=== PATIENT | female | born 1950 | race Caucasian/White ===

== ENCOUNTER 2018-07-08 15:40 | Emergency (ER) | payer MEDICARE ==
[2018-07-08 16:01] VITALS: BP 129/79
--- NOTE | 2018-07-08 16:05 | UC ---
Ear Complaint HPI - History of Current Complaint Chief Complaint: UCEar Stated Complaint: EARS PLUGGED Time Seen by Provider: 07/08/18 16:05 Pain Intensity: 6 - Allergies/Home Medications Allergies/Adverse Reactions: Allergies Allergy/AdvReac Type Severity Reaction Status Date / Time Penicillins Allergy Severe Anaphylatic Verified 07/08/18 16:01 Shock amoxicillin Allergy Anaphylatic Verified 07/08/18 16:01 Shock Home Medications: Home Medications Melatonin/Herbal No.233 [Midnite Chewable Tablet] 1 each PO DAILY WITH MEAL 11/13 [History Confirmed 07/08/18] PMH/Surg Hx/FS Hx/Imm Hx - Surgical History Surgical History: None Surgery Procedure, Year, and Place: denies - Social History Alcohol Use: Occasionally Substance Use Type: None Smoking Status (MU): Never Smoked Tobacco Physical Exam Vital Signs: Initial Vital Signs Temp 99.2 F 07/08/18 15:57 Pulse 91 07/08/18 15:57 Resp 18 07/08/18 15:57 BP 129/79 07/08/18 15:57 Pulse Ox 100 07/08/18 15:57 Discharge - Discharge Plan Referrals: Nguyen Morton MD [Primary Care Provider] -
--- NOTE | 2018-09-05 12:01 | UC ---
Ear Complaint HPI - HPI Summary HPI Summary: one week has had clogged ears, slightly painful /pressure - History of Current Complaint Chief Complaint: UCEar Stated Complaint: EARS PLUGGED Time Seen by Provider: 07/08/18 16:05 Hx Obtained From: Patient ?: No Onset/Duration: Gradual Onset, Lasting Weeks Severity Initially: Mild Severity Currently: Mild Pain Intensity: 0 Pain Scale Used: 0-10 Numeric Associated Signs/Symptoms: Positive: Hearing Loss - Allergies/Home Medications Allergies/Adverse Reactions: Allergies Allergy/AdvReac Type Severity Reaction Status Date / Time Penicillins Allergy Severe Anaphylatic Verified 07/21/18 14:46 Shock amoxicillin Allergy Anaphylatic Verified 07/21/18 14:46 Shock Home Medications: Home Medications Melatonin/Herbal No.233 [Midnite Chewable Tablet] 1 each PO DAILY WITH MEAL 11/13 [History Confirmed 07/08/18] PMH/Surg Hx/FS Hx/Imm Hx Previously Healthy: Yes - Surgical History Surgical History: None Surgery Procedure, Year, and Place: denies - Family History Known Family History: Positive: Hypertension - Social History Alcohol Use: Occasionally Substance Use Type: None Smoking Status (MU): Never Smoked Tobacco Review of Systems Constitutional: Negative Skin: Negative Eyes: Negative ENT: Ear Ache Respiratory: Negative Cardiovascular: Negative Gastrointestinal: Negative Genitourinary: Negative Motor: Negative Neurovascular: Negative Musculoskeletal: Negative Neurological: Negative Psychological: Negative Is Patient Immunocompromised?: No All Other Systems Reviewed And Are Negative: Yes Physical Exam Triage Information Reviewed: Yes Appearance: Well-Appearing, Well-Nourished, Pain Distress Vital Signs: Initial Vital Signs Temp 99.2 F 07/08/18 15:57 Pulse 91 07/08/18 15:57 Resp 18 07/08/18 15:57 BP 129/79 07/08/18 15:57 Pulse Ox 100 07/08/18 15:57 Vital Signs Reviewed: Yes Eye Exam: Normal ENT Exam: Other - cerumen impaction ENT: Positive: Pharyngeal erythema, TM bulging Neck exam: Normal Respiratory Exam: Normal Cardiovascular Exam: Normal Abdominal Exam: Normal Musculoskeletal Exam: Normal Neurological Exam: Normal Psychological Exam: Normal Skin Exam: Normal Ear Complaint Course/Dx - Course Course Of Treatment: hx obtained, exam performed, meds reviewed, - Differential Dx/Diagnosis Differential Diagnosis/HQI/PQRI: Cerumen Impaction, Otitis Externa, Otitis Media Provider Diagnoses: serous otitis Discharge - Sign-Out/Discharge Documenting (check all that apply): Patient Departure All imaging exams completed and their final reports reviewed: No Studies - Discharge Plan Condition: Stable Disposition: HOME Patient Education Materials: Serous Otitis Media (ED) Referrals: Nguyen Morton MD [Primary Care Provider] - Additional Instructions: 1. warm compresses to neck and ears 2. daily zyrtec or drug store equivalent daily 3. Flonase, 2 puffs in both nares daily for 3-4 weeks. 4. Follow up if not improving - Billing Disposition and Condition Condition: STABLE Disposition: Home
== END 2018-07-08 16:20 | disposition home or self-care (01) ==
LOC: UCEAST 15:40
DX: H65.93 Unspecified nonsuppurative otitis media, bilateral (principal); H61.23 Impacted cerumen, bilateral; Z88.0 Allergy status to penicillin
CPT/HCPCS: 99212; G0463

== ENCOUNTER 2018-07-21 14:29 | Emergency (ER) | payer MEDICARE ==
--- OUTSIDE RECORDS SUMMARY | 2018-07-21 14:42 | XMS REPORT ---
:1950 External Reference #:[id number] Author Organization [employer] Address [address] [place] [address] Phone [phone] Care Team Providers Name Role Phone Nguyen Morton MD Primary Care Physician Unavailable Payers Type Date Identification Numbers Payment Provider Subscriber Commercial Effective: Policy Number: [id number] [employer] Emilie White 2017 PayID: [id number] [address] [place] [address] Problems Date Description Provider Status Onset: 01/03/2012 Hyperlipidemia Imani Neves, N.P. Active Onset: 01/03/2012 Goiter Imani Neves, N.P. Active Family History Date Family Member(s) Problem(s) Comments : (age 61 Father due to [place] Years) Onset: (03/18/2014) Mother Depression age 93 Siblings 3 1 Brother - ? Lung Cancer - age 63 1 Brother - DM age 67 1 Brother - Sinus Trouble age 54 Social History Type Date Description Comments Marital Status Occupation Homemaker Occupation Retired ETOH Use Currently consumes alcohol 0 - 1 per week Smoking Patient has never smoked Exercise Type/Frequency Exercises regularly Walks daily, Goes to the gym regularly to do weights and cardio Allergies, Adverse Reactions, Alerts Date Description Reaction Status Severity Comments 01/03/2012 Amoxicillin Anaphylaxis, swelling active Moderate to Severe Medications Medication Date Status Form Strength Qnty SIG Indications Ordering Provider Zyrtec Allergy 07/12/ Active Capsules 10mg 30caps take one Imani 2018 tablet by Pura, N.P. mouth in the evening Fluticasone 07/12/ Active Suspension 50mcg/Act 1units 2 sprays Imani Propionate 2017 per Varn, N.P. Nasal [place] nostril 24- Hour daily Afrin 12 Hour 07/12/ Active Solution 0.05% 60ml 2 squirts 2017 to each Varn, N.P. nostril twice a day for no more than 5 days Escitalopram 07/12/ Active Tablets 10mg 30tabs 1 by F41.1 Imani Oxalate 2017 mouth Varn, N.P. every day Xanax 04/27/ Active Tablets 0.25mg 30tabs one by Imani 2017 mouth up Varn, N.P. to three times daily as needed for anxiety Ibuprofen / Active Capsules 200mg prn Unknown 0000 Calcium + D / Active Tablets 600-200mg- 30tabs 1 po bid Unknown 0000 Unit Multi-Vitamin / Active Tablets 1 po qd Unknown 0000 Lycopene / Active Capsules Unknown 0000 Doxycycline 06/01/ Hx Tablets 100mg 2tabs take 2 Nguyen Hyclate 2010 - tablets Cotton, 06/02/ by mouth M.D. 2010 Cetirizine HCL / Hx Tablets 10mg 1 by Unknown 0000 - mouth 03/14/ every day 2017 Garlic / Hx Capsules 450mg 1 by Unknown 0000 - mouth 03/14/ every day 2017 Immunizations CPT Code Status Date Vaccine Reaction Lot # [id number] Given 03/14/2018 Pneumococcal Conjugate No immediate [id number] Vaccine 13 Valent For reaction.. Intramuscular Use 50155 Given 09/07/2017 Influenza Virus Vaccine, No immediate [id number] Quadrivalent, Split, reaction... Preservative Free 84141 Given 09/16/2016 Influenza Virus Vaccine, no reaction noted .. [id number] Quadrivalent, Split Virus, [place] Use 82228 Given 09/04/2015 Influenza Virus Vaccine, [id number] Quadrivalent, Split, Preservative Free 38477 Given 09/30/2014 Flu Vaccine Split Virus Preservative Free For Indiv 3Yr Older 14334 Given 09/30/2014 Flu Vaccine Split Virus [id number] Preservative Free For Indiv 3Yr Older 88489 Given 04/28/2014 Zoster (Zostavax) 08011 Given 04/28/2014 Zoster (Zostavax) [id number] 09506 Given 09/30/2013 Flu Vaccine Split Virus [id number] Preservative Free For Indiv 3Yr Older [id number] Given 09/18/2012 Fluvirin Im 3Yrs And Older [id number] 76281 Given 09/23/2011 Influenza Virus 3Yrs & Over [id number] 30195 Given 06/24/2010 Tdap - Tetanus/Diptheria/Acellular Pertussis Vital Signs Date Vital Result Comment 07/12/2018 Height 67 inches 5'7" Weight 164.50 lb Heart Rate 90 /min BP Systolic 130 mmHg BP Diastolic 68 mmHg Body Temperature 98.5 F O2 % BldC Oximetry 97 % BMI (Body Mass Index) 25.8 kg/m2 03/14/2018 Height 67 inches 5'7" Weight 181.50 lb Heart Rate 72 /min BP Systolic 128 mmHg BP Diastolic 82 mmHg Body Temperature 98.8 F O2 % BldC Oximetry 97 % BMI (Body Mass Index) 28.4 kg/m2 03/18/2014 Height 67 inches 5'7" Weight 180.00 lb Heart Rate 80 /min BP Systolic Sitting 130 mmHg BP Diastolic Sitting 70 mmHg BMI (Body Mass Index) 28.2 kg/m2 09/18/2012 Height 67 inches 5'7" Weight 169.00 lb Heart Rate 72 /min BP Systolic Sitting 130 mmHg BP Diastolic Sitting 80 mmHg BMI (Body Mass Index) 26.5 kg/m2 01/03/2012 Height 67 inches 5'7" Weight 177.00 lb Heart Rate 84 /min BP Systolic Sitting 142 mmHg BP Diastolic Sitting 76 mmHg BMI (Body Mass Index) 27.7 kg/m2 Results Test Date Test Result H/L Range Note Laboratory test finding 03/14/2018 Cytology SEE RESULT BELOW 1, 2 Lipid Profile 03/08/2018 Triglycerides 261 mg/dL 3 (Trig/Chol/HDL) Cholesterol 241 mg/dL 4 HDL Cholesterol 50.0 mg/dL 5 LDL Cholesterol 139 mg/dL 6 Comp Metabolic Panel 03/08/2018 Sodium 140 mmol/L 139-145 Potassium 4.1 mmol/L 3.5-5.0 Chloride 105 mmol/L 101-111 Co2 Carbon Dioxide 28 mmol/L 22-32 Anion Gap 7 mmol/L 2-11 Glucose 99 mg/dL 70-100 Blood Urea Nitrogen 15 mg/dL 6-24 Creatinine 0.78 mg/dL 0.51-0.95 BUN/Creatinine Ratio 19.2 8-20 Calcium 9.2 mg/dL 8.6-10.3 Total Protein 6.7 g/dL 6.4-8.9 Albumin 4.2 g/dL 3.2-5.2 Globulin 2.5 g/dL 2-4 Albumin/Globulin Ratio 1.7 1-3 Total Bilirubin 0.50 mg/dL 0.2-1.0 Alkaline Phosphatase 65 U/L 34-104 Alt 10 U/L 7-52 Ast 13 U/L 13-39 Egfr Non- 74.1 >60 Egfr 95.3 >60 7 Laboratory test finding 03/18/2014 Cytology RUN DATE: <SEE NOTE> HPV High Risk 03/18/2014 Human Papillomavirus See Comment 9 Source HPV High Risk Type 16, PCR Negative Negative HPV High Risk Type 18, PCR Negative Negative HPV Other Risk types Negative Negative 10 Lipid Profile (Trig/Chol/HDL) 03/07/2014 Triglycerides 128 mg/dL 11, 12 Cholesterol 254 mg/dL 11, 13 HDL Cholesterol 55.2 mg/dL 11, 14 LDL Cholesterol 173 mg/dL 11, 15 Laboratory test finding 03/07/2014 Glucose 97 mg/dL 70-100 11, 16 TSH (Thyroid Stimulating Horm) 1.02 IU/mL 0.34-5.60 11, 17 Laboratory test finding 01/03/2012 Cytology <SEE NOTE> 18 1 [id number] 2 SEE RESULT BELOW Name: EMILIE WHITE : [address]: Imani Neves FORM PRESSER Acct: [id number] Unit: [id number] AGE: 67 Location: [facility] Re03/14/18 SEX: F Status: REG REF SPEC: [id number] FRANK: 03/14/181555 [facility] DR: Imani Neves FORM PRESSER REQ: [id number] RECD: 03/14/18 STATUS: SOUT _ ORDERED: TP IMAGE ANAL, HPV/Thin Prep, HPV 16/18 GENE COMMENTS: [id number] Negative for Intraepithelial lesion or Malignancy A. Ectocervical/Endocervical Specimen Adequacy: Satisfactory of evaluation Transformation zone component cannot be definitely identified due to presence of atrophy or other hormonal changes Patient Information: HPV: High risk HPV RNA testing regardless of pap results. HPV 16/18 Genotype Reflex Actual Specimen Date: 03/14/18 LMP If Unknown: age 50 +/- Spec Date if unknown: 214 ?: N Post Menopausal?: Y Hysterectomy?: N Previous Abnormal Pap Smears?:N Date Time Test Result Flag (u) Normal Range 03/14/18 1600 @ HPV RNA RFLX GE Negative Negative @ @ The high-risk HPV types detected by the assay include: 16, @ 18, 31, 33, 35, 39, 45, 51, 52, 56, 58, 59, 66, and 68. Signed (signature on file) FER Mora(ASCP) 03/15 1419 This Pap test was evaluated with the assistance of the [employer] Test Imaging System. Due to cytologic findings at the supervisor felling bucking microscope, comprehensive manual rescreening by a [employer] may be required. The Pap Smear is a screening test designed to aid in the detection of premalignant and malignant conditions of the uterine cervix. It is not a diagnostic procedure and should not be used as the sole means of detecting cervical cancer. Both false- positive and false- negative reports do occur. Depending on your risk status, a Pap smear should be obtained and evaluated every 1-3 years. END OF REPORT DEPARTMENT OF PATHOLOGY, [address] [place] [address] Gary Dan M.D. Director [facility] # [id number] 3 Desirable: <150 Borderline High: 150-199 High: 200-499 Very High: >500 4 Desirable: <200 Borderline High: 200-239 High: >239 5 Low: <40 Desirable: 40-60 High: >60 6 Desirable: <100 Near Optimal: 100-129 Borderline High: 130-159 High: 160-189 Very High: >189 7 Because ethnic data is not always readily available, this report includes an eGFR for both -Americans and non- Americans. The National Kidney Disease Education Program (NKDEP) does not endorse the use of the MDRD equation for patients that are not between the ages of 18 and 70, are , have extremes of body size, muscle mass, or nutritional status, or are non- or non-. According to the National Kidney Foundation, irrespective of diagnosis, the stage of the disease is based on the level of kidney function: Stage Description GFR(mL/min/1.73 m(2)) 1 Kidney damage with normal or decreased GFR 90 2 Kidney damage with mild decrease in GFR 60-89 3 Moderate decrease in GFR 30-59 4 Severe decrease in GFR 15-29 5 Kidney failure <15 (or dialysis) 8 RUN DATE: 03/19/14 [facility] LAB LIVE PAGE 1 RUN TIME: [address] [place] [address] Specimen Inquiry Name: EMILIE WHITE : [address]: Imani Neves NP Acct: [id number] Unit: [id number] AGE: 63 Location: [facility] Re03/18/14 SEX: F Status: REG REF SPEC: [id number] FRANK: 03/18/14-9587 [facility] DR: Imani Neves NP REQ: [id number] RECD: 03/18/14767 STATUS: SOUT _ ORDERED: IMAGE ANALYSIS, HPV/Thin Prep FINAL DIAGNOSIS Negative for Intraepithelial lesion or Malignancy COMMENTS: Specimen sent to [facility] in [place], [place] on 03/19/14 by [id number] at 1033. Results will be reported separately. A. Ectocervical/Endocervical Specimen Adequacy: Satisfactory of evaluation Transformation zone component cannot be definitely identified due to presence of atrophy or other hormonal changes Patient Information: HPV: High risk HPV DNA testing regardless of pap results. Actual Specimen Date: 03/18/14 LMP If Unknown: 50's Cautery: N ?: N Post Menopausal?: Y Hysterectomy?: N Previous Abnormal Pap Smears?:N Signed (signature on file) Gloria Issa CT (ASCP) 03/19/14 1138 This Pap test was evaluated with the assistance of the [employer] Test Imaging System. Due to cytologic findings at the supervisor felling bucking microscope, comprehensive manual rescreening by a [employer] may be required. The Pap Smear is a screening test designed to aid in the detection of premalignant and malignant conditions of the uterine cervix. It is not a diagnostic procedure and should not be used as the sole means of detecting cervical cancer. Both false- positive and false- negative reports do occur. Depending on your risk status, a Pap smear shoudl be obtained and evaluated every 1-3 years. END OF REPORT * ML=Testing performed at Main Lab DEPARTMENT OF PATHOLOGY, [address] [place] [address] Gary Dan M.D. Director [facility] Permit #[id number] 9 RESULT: Ectocervical/Endocervical 10 The following Other High Risk HPV types were not detected: 31, 33, 35, 39, 45, 51, 52, 56, 58, 59, 66, and 68 Test Performed by: [address] [address] Pilot Safety Inspector: Himanshu Maldonado III, M.D. 11 PT IS FASTING 12 Desirable <150 Borderline high 150-199 High 200-499 Very High >500 13 Desirable <200 Borderline high 200-239 High >239 14 Low <40 Desirable: 40-60 High: >60 15 Desirable <100 Near Optimal 100-129 Borderline high 130-159 High 160-189 Very High >189 16 PT IS FASTING 17 PT IS FASTING 18 ---- RUN DATE: 01/04/12 [facility] NMI LIVE PAGE 1 RUN TIME: 1551 Specimen Inquiry RUN USER: INTERFACE -- Name: ENAJUDITHEMILIE D Status: REG REF Re01/03/12 Age/Sex: 61/F Unit#: [id number] Location: [facility] : [birth year] -- Specimen: [id number] SOUT Spec Date: 01/03/[address]: Imani SELBYP Spec Type: CYTOLOGY Received: 01/04/12-1113 Copies to: SOURCE ECTOCERVICAL/ENDOCERVICAL Thin Prep with Reflex HPV Test PATIENT INFORMATION ACTUAL COLLECTION DATE: 01/03/12 POST MENOPAUSAL? Yes PREVIOUS ABNORMAL PAP SMEARS No PATIENT HISTORY: Last menstrual period at age 53 ADEQUACY OF SPECIMEN Satisfactory for evaluation * Transformation zone component cannot be definitely identified due to prese nce * of atrophy or other hormonal changes. * DIAGNOSIS NEGATIVE FOR INTRAEPITHELIAL LESION OR MALIGNANCY * This Pap test was evaluated with the assistance of the [employer] DIG[employer]EP[employer] Pap Test Imaging System. The Pap Smear is a screening test designed to aid in the detection of premalign ant and malignant conditions of the uterine cervix. It is not a diagnostic procedure a nd should not be used as the sole means of detecting cervical cancer. Both false- positiv e and false-negative reports do occur. Depending on your risk status, a Pap smear mily uld be obtained and evaluated every one to three years. Initial evaluation performed by Mar LIM([facility]) 01/04/12 Final Interpretation electronically signed by: Mar LIM([facility]) 01/04/12 1550 -- -- DEPARTMENT OF PATHOLOGY, [address] [place] [address] [facility] Permit #[id number] Gary Dan M.D. Director Donald Cole M.D. Occupational Work Experience Teacher Dir renetta -- Procedures Date CPT Code Description Status Comment 04/03/2018 Bone Mineral Density Test Completed 04/03/2018 Mammogram Completed 03/14/2018 97582 EKG Tracing & Interpretation Completed 10/18/2017 Diabetic Retinal Eye Exam Completed Document: 10/18/17 - Consult Ophthalmology/[place] 05/02/2014 Mammogram Completed 01/03/2012 01933 EKG Tracing & Interpretation Completed 06/29/2011 Mammogram Completed 07/29/2010 Colonoscopy Completed 06/07/2010 Mammogram Completed Encounters Type Date Location Provider CPT E/M Dx Office Visit 03/18/2014 1:40p [facility] Imani Neves N.P. [address] V70.0 - [place] V72.31 V76.10 272.4 240.9 Office Visit 09/18/2012 2:20p [facility] Imani Neves, N.P. [address] 916.4 - [place] V04.81 709.9 Office Visit 01/03/2012 9:20a [facility] Imani Neves N.P. 22018 V70.0 - [place] 272.4 477.9 Office Visit 06/02/2010 9:00a DO Not Use Imani Neves 07181 V72.31 [facility] N.P. v72.31 Plan of Care 07/12/2018 - Imani Neves, N.P.H92.09 Otalgia, unspecified earComments:To further evaluate your ear symptoms I am referring you to a specialist, Dr Kelley.Referral:Devin Kelley MD, VowcjijcupigxsH73.1 Generalized anxiety disorderNew Medication:Escitalopram Oxalate 10 mgComments:I urge you to follow through with counseling, I think you will benefit greatly from this.
[2018-07-21 14:47] VITALS: BP 147/91
--- NOTE | 2018-07-21 14:54 | UC ---
Ear Complaint HPI - HPI Summary HPI Summary: 67 yo female presents with feeling that her ears are plugged for the last 3 weeks. She tells me that she was seen here earlier this month and told that she had fluid in her ears and advised to take flonase and zyrtec. She has been using both of those with no change in her symptoms. She saw her PCP 4 days ago who told her to try affrin nasal spray, which she has been using with no change in her symptoms. She denies fever, chills, sinus symptoms, sore throat, cough, SOB, chest pain, headaches, or dizziness. - History of Current Complaint Chief Complaint: UCEar Stated Complaint: EAR COMPLAINT Time Seen by Provider: 07/21/18 14:53 Hx Obtained From: Patient Onset/Duration: Gradual Onset Severity Initially: Moderate Severity Currently: Moderate Pain Intensity: 7 Pain Scale Used: 0-10 Numeric - Allergies/Home Medications Allergies/Adverse Reactions: Allergies Allergy/AdvReac Type Severity Reaction Status Date / Time Penicillins Allergy Severe Anaphylatic Verified 07/21/18 14:46 Shock amoxicillin Allergy Anaphylatic Verified 07/21/18 14:46 Shock Home Medications: Home Medications Escitalopram Oxalate [Lexapro 10 mg] 5 mg PO DAILY 07/21/18 [History Confirmed 07/21/18] PMH/Surg Hx/FS Hx/Imm Hx Psychological History: Anxiety - Surgical History Surgical History: None Surgery Procedure, Year, and Place: denies - Family History Known Family History: Positive: None - Social History Occupation: Retired Lives: With Family Alcohol Use: Occasionally Substance Use Type: None Smoking Status (MU): Never Smoked Tobacco Review of Systems Constitutional: Negative Skin: Negative Eyes: Negative ENT: Ear Ache Respiratory: Negative Cardiovascular: Negative Gastrointestinal: Negative Musculoskeletal: Negative Neurological: Negative Psychological: Negative All Other Systems Reviewed And Are Negative: Yes Physical Exam - Summary Physical Exam Summary: GENERAL: NAD. WDWN. No pain distress. SKIN: No rashes, sores, lesions, or open wounds. HEENT: Head: AT/NC Eyes: EOM intact. Conjunctiva clear without inflammation or discharge. Ears: Hearing grossly normal. TMs intact, no bulging, erythema, or edema. Nose: Nasal mucosa pink and moist. NTTP maxillary and frontal sinus. Throat: Posterior oropharynx without exudates, erythema, or tonsillar enlargement. Uvula midline. NECK: Supple. Nontender. No lymphadenopathy. CHEST: CTAB. No r/r/w. No accessory muscle use. Breathing comfortably and in no distress. CV: RRR. Without m/r/g. Pulses intact. Cap refill <2seconds NEURO: Alert. CN II-XII grossly intact. PSYCH: Age appropriate behavior. Triage Information Reviewed: Yes Vital Signs: Initial Vital Signs Temp 98.0 F 07/21/18 14:42 Pulse 84 07/21/18 14:42 Resp 18 07/21/18 14:42 BP 147/91 07/21/18 14:42 Pulse Ox 98 07/21/18 14:42 Vital Signs Reviewed: Yes Ear Complaint Course/Dx - Course Course Of Treatment: I suspect her ear symptoms are caused by seasonal allergies or a chronic eustacian tube dysfunction. However, since she has not improved with first line recommendations - I will refer her to ENT for further evaluation. Pt agreeable to plan. - Differential Dx/Diagnosis Provider Diagnoses: Ear fullness Discharge - Sign-Out/Discharge Documenting (check all that apply): Patient Departure All imaging exams completed and their final reports reviewed: No Studies - Discharge Plan Condition: Stable Disposition: HOME Referrals: Imani Neves NP [Primary Care Provider] - Brayden Deal MD [Medical Doctor] - As Soon As Possible Pipe Romero MD [Medical Doctor] - As Soon As Possible Additional Instructions: If you develop a fever, shortness of breath, chest pain, new or worsening symptoms - please call your PCP or go to the ED. Your blood pressure was mildly elevated at todays visit. Please see your primary provider within 4 weeks for recheck and re-evaluation. 1) Please follow up with an Ear, Nose, and Throat doctor as soon as possible for further evaluation - Billing Disposition and Condition Condition: STABLE Disposition: Home
== END 2018-07-21 15:15 | disposition home or self-care (01) ==
LOC: UCEAST 14:29
DX: H93.8X3 Other specified disorders of ear, bilateral (principal)
CPT/HCPCS: 99211; G0463